=== PATIENT | male | born 1955 | race Caucasian/White ===

== ENCOUNTER 2025-07-23 15:53 | Emergency (ER) | payer MEDICARE, OTHER ==
[2025-07-23 17:05] LABS: PLATELET COUNT,PLT 355 10^3/uL (150-450); RED BLOOD CELL COUNT 2.10 10^6/uL (4.6-6.2); WHITE BLOOD CELL COUNT,WBC 4.6 10^3/uL (5.0-10.0)
[2025-07-23 17:14] LABS: BASOPHILS PERCENT AUTO 2.2 % (0.0-1.0); EOSINOPHILS PERCENT AUTO 3.1 % (1.0-3.0); LYMPHOCYTES PERCENT AUTO 21.3 % (20.5-50.1); MONOCYTES PERCENT AUTO 13.2 % (2-8); NEUTROPHILS PERCENT AUTO 60.2 % (42.2-75.2)
[2025-07-23 17:24] LABS: ALANINE AMINOTRANSFERASE,ALT 17.0 U/L (16-63); ASPARTATE AMNIOTRANSFERASE,AST 27.0 U/L (15-37); BILIRUBIN TOTAL 0.2 mg/dL (0.2-1.0); BLOOD UREA NITROGEN,BUN 12.0 mg/dL (7-18); CARBON DIOXIDE,CO2 29.0 mmol/L (21-32); CHLORIDE,CL 102.0 mmol/L (98-107); CREATININE 1.38 mg/dL (0.70-1.30); EST CRCL DRUG DOSING (CG) 46.81 mL/min; GLUCOSE RANDOM 91.0 mg/dL (70-99); POTASSIUM,K 4.7 mmol/L (3.5-5.1); PROTEIN TOTAL,TP 6.6 g/dL (6.4-8.2); SODIUM,NA 137.0 mmol/L (136-145)
[2025-07-23 17:25] LABS: A/G RATIO 0.47; ESTIMATED GFR 54.0 mL/min (>=60); LACTIC ACID 0.8 mmol/L (0.4-2.0)
[2025-07-23 17:41] LABS: BAND PERCENT MAN 2 %; LYMPHOCYTES PERCENT MAN 25 % (20-50); SEG NEUTROPHILS PERCENT MAN 58 % (42-75)
[2025-07-23 17:42] LABS: BASOPHILS PERCENT MAN 2; EOSINOPHILS PERCENT MAN 3 % (1-3); MONOCYTES PERCENT MAN 10 % (2-8)
== END 2025-07-23 19:24 | disposition home or self-care (01) ==
LOC: DL.ED 15:53
DX: K51.911 Ulcerative colitis, unspecified with rectal bleeding (principal); D50.0 Iron deficiency anemia secondary to blood loss (chronic); R29.6 Repeated falls; R63.0 Anorexia; R41.0 Disorientation, unspecified
CPT/HCPCS: 36415; 70450; 71046; 80053; 83605; 83735; 84484; 85025; 85379; 86850; 86900; 86901; 87493; 96360; 99285; J7030